=== PATIENT | male | born 1955 | race Caucasian/White ===

== ENCOUNTER 2021-05-01 14:09 | Emergency (ER) | payer BC ==
[~2021-05-01] VITALS: Ht 182.9 cm; Wt 88.6 kg
[2021-05-01 14:34] VITALS: TEMP 98.1
[2021-05-01 15:49] LABS: COLLECTION METHOD CLEAN CATCH
[2021-05-01 15:57] LABS: BASO # 0.1 K/mm3 (0.0-0.2); EOS % 0.2 % (0-4.0); GRAN # 6.1 K/mm3 (1.4-6.5); GRAN % 66.1 % (42.2-75.2); HEMATOCRIT 43.1 % (42.0-52.0); HEMOGLOBIN 15.4 g/dl (13.5-18.0); LYMPH # 2.1 K/mm3 (1.2-3.4); LYMPH % 22.7 % (20.0-51.0); MEAN CELL VOLUME 95 fl (80.0-100.0); MEAN CORPUSCULAR HEMOGLOBIN 34 pg (27.0-31.0); MEAN CORPUSCULAR HGB CONC 36 g/dl (33.0-37.0); MEAN PLATELET VOLUME 9.1 fl (7.4-10.4); MONO # 0.9 K/mm3 (0.1-0.6); MONO % 9.3 % (1.7-9.3); PLATELET COUNT 260 K/mm3 (130-400); RED BLOOD COUNT 4.53 M/mm3 (4.20-5.60); REDCELL DISTRIBUTION WIDTH-CV 12.4 % (11.5-14.5)
[2021-05-01] MEDS ORDERED: NEURONTIN300 MG/CAP PO (16:02)
[2021-05-01] MEDS ORDERED: PRAVACHOL 40MG40 MG PO (16:03)
[2021-05-01 16:04] LABS: PROTHROMBIN TIME 10.5 SECONDS (9.7-12.8)
[2021-05-01] MEDS ORDERED: VITAMIN D31000 I1 PO (16:04)
[2021-05-01] MEDS ORDERED: ZYRTEC 10MG10 MG PO (16:04)
[2021-05-01] MEDS ORDERED: TYLENOL 500MG500 MG PO (16:06)
[2021-05-01 16:12] LABS: ALANINE AMINOTRANSFERASE 45 U/L (0-55); ALBUMIN 4.1 gm/dL (3.4-4.8); ALKALINE PHOSPHATASE 82 U/L (40-150); ANION GAP 13 mmol/L (7-16); AST,SGOT 54 U/L (5-34); BILIRUBIN,TOTAL 0.5 mg/dL (0.2-1.2); BLOOD UREA NITROGEN 5 mg/dL (8-26); C-REACTIVE PROTEIN 0.15 mg/dL (0.00-0.50); CALCIUM 9.2 mg/dL (8.4-10.2); CARBON DIOXIDE 20 mmol/L (23-31); CHLORIDE 103 mmol/L (98-107); CREATININE, serum 0.77 mg/dL (0.72-1.25); GLUCOSE 89 mg/dL (70-99); SODIUM 136 mmol/L (136-145); TOTAL PROTEIN 7.9 gm/dL (6.2-8.1)
[2021-05-01 16:14] LABS: PH 5 (5-8); SQUAMOUS EPITHELIAL None Seen /hpf (0-10); URINE APPEARANCE Clear (CLEAR/HAZY); URINE BACTERIA None Seen (NONE SEEN); URINE BILIRUBIN Negative (NEGATIVE); URINE BLOOD Negative (NEGATIVE); URINE COLOR Yellow (YELLOW); URINE GLUCOSE Negative (NEGATIVE); URINE KETONE Negative (NEGATIVE); URINE LEUKOCYTE ESTERASE Negative (NEGATIVE); URINE NITRATE Negative (NEGATIVE); URINE PROTEIN(semi-quant) Negative (NEGATIVE); URINE RBC 0-2 /hpf (0-2); URINE UROBILINOGEN Negative (NEGATIVE)
[2021-05-01 16:18] LABS: TROPONIN-I < 0.010 ng/mL (0.00-0.033)
[2021-05-01 19:15] VITALS: BP 132/70; PULSE 78
== END 2021-05-01 19:15 | disposition home or self-care (01) ==
LOC: COL.ER 14:09
PROVIDERS: Nurse Practitioner Primary Care
DX: G62.9 Polyneuropathy, unspecified (principal); F17.210 Nicotine dependence, cigarettes, uncomplicated; E78.5 Hyperlipidemia, unspecified; Z79.899 Other long term (current) drug therapy
CPT/HCPCS: J7030